=== PATIENT | female | born 1970 | race Caucasian/White ===

== ENCOUNTER 2016-11-10 18:09 | Emergency (ER) | payer OTHER ==
[~2016-11-10] VITALS: Ht 157.5 cm; Wt 90.4 kg
[2016-11-10 19:10] LABS: BASOPHIL % 0.4 % (0-2); PLATELET COUNT 281 x10^3mcL (130-400); RED CELL DISTRIBUTION WIDTH 12.9 % (11.5-14.5)
[2016-11-10 19:16] LABS: CALCIUM 8.7 mg/dL (8.5-10.1); CARBON DIOXIDE 29.2 mmol/L (21-32); CHLORIDE SERUM 105 mmol/L (98-107); CREATININE SERUM 0.8 mg/dL (0.6-1.0); GFR1 > 60 mL/min; GLUCOSE SERUM 103 mg/dL (74-106); POTASSIUM SERUM 3.9 mmol/L (3.5-5.1); SODIUM SERUM 141 mmol/L (136-145)
[2016-11-10 19:23] LABS: ALBUMIN 3.6 g/dL (3.4-5.0); ALKALINE PHOSPHATASE 114 U/L (46-116); ALT/SGPT 27 U/L (14-59); AST/SGOT 21 U/L (15-37); BILIRUBIN TOTAL 0.2 mg/dL (0.20-1.00); TOTAL PROTEIN, SERUM 7.8 g/dL (6.4-8.2)
[2016-11-10 21:17] VITALS: BP 132/65
== END 2016-11-10 21:18 | disposition home or self-care (01) ==
LOC: ED 18:09
PROVIDERS: Emergency Medicine
DX: R10.13 Epigastric pain (principal)
CPT/HCPCS: 36415; 83880; Q0162

== ENCOUNTER 2016-11-21 09:10 | Emergency (ER) | payer OTHER ==
[~2016-11-21] VITALS: Ht 152.4 cm; Wt 90.3 kg
[2016-11-21 14:19] VITALS: BP 136/74
== END 2016-11-21 14:19 | disposition home or self-care (01) ==
LOC: ED 09:10
DX: M54.5 Low back pain (principal); E66.9 Obesity, unspecified
CPT/HCPCS: J1885; J3010; Q0162

== ENCOUNTER 2017-06-22 10:49 | Emergency (ER) | payer OTHER ==
[~2017-06-22] VITALS: Ht 160 cm; Wt 88.0 kg
[2017-06-22 10:53] VITALS: Ht 160 cm; Wt 88.0 kg
[2017-06-22 13:29] VITALS: BP 111/55
== END 2017-06-22 13:29 | disposition home or self-care (01) ==
LOC: ED 10:49
DX: T78.1XXA Other adverse food reactions, not elsewhere classified, initial encounter (principal); Z88.8 Allergy status to other drugs, medicaments and biological substances; X58.XXXA Exposure to other specified factors, initial encounter
CPT/HCPCS: J1200; J2930; J3490

== ENCOUNTER 2018-06-10 04:34 | Emergency (ER) | payer OTHER ==
[~2018-06-10] VITALS: Ht 165.1 cm; Wt 89.0 kg
[2018-06-10 04:38] VITALS: Ht 165.1 cm; Wt 89.0 kg
[2018-06-10 05:19] LABS: microscopic required? YES; urine erythrocyte TRACE (NEGATIVE)
[2018-06-10 07:45] VITALS: BP 130/78
== END 2018-06-10 07:45 | disposition home or self-care (01) ==
LOC: ED 04:34
PROVIDERS: Emergency Medicine
DX: N39.0 Urinary tract infection, site not specified (principal); Z91.013 Allergy to seafood
CPT/HCPCS: J1885